=== PATIENT | male | born 2005 | race African-American/Black ===

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

== ENCOUNTER 2023-03-17 10:33 | Emergency (ER) | payer OTHER, SELFPAY ==
[2023-03-17 10:41] VITALS: BP 132/70; PULSE 84; RESP 16; TEMP 36.6; O2SAT 100
--- NOTE | 2023-03-17 11:08 | ED.GENADULT ---
[facility] - General Adult General Chief complaint: Dental/Oral Stated complaint: dental pain Time Seen by Provider: 03/17/23 10:45 Source: patient Mode of arrival: ambulatory Limitations: no limitations History of Present Illness [facility] narrative: This is a 17-year-old male who presents to the ED with chief complaint of left upper dental pain/swelling beginning about a week ago. Reports he initially had pain in the left upper side but that has since subsided. He states he started to develop swelling to the left side of his face. States the swelling has gradually increased since onset. Pain is minimal at this point. Reports he has a history of a cracked tooth on that left upper side but has not been able to see his dentist yet. He has not been seen for this problem yet. Denies fevers, chills, nausea, vomiting. Related Data Allergies Allergy/AdvReac Type Severity Reaction Status Date / Time No Known Allergies Allergy Verified 11/24/20 20:07 Review of Systems Review of Systems: All systems as dictated in [facility] Past Medical History Medical History Asthma Social History Social History Living arrangements: with family Exam Narrative: GENERAL: Well-appearing, well-nourished, and in no acute distress. HEAD: Normocephalic, atraumatic. EYES: PERRLA and EOMI. ENT: There is gingival swelling without identifiable abscess to the left upper premolar/molars. Mild tenderness in this area. Floor the mouth is intact. No trismus or drooling. Floor the mouth is intact. Left-sided facial swelling present. Mild tenderness. No overlying skin changes. Nares clear, no rhinorrhea or epistaxis. Mucous membranes moist. Oropharynx without tonsillar hypertrophy exudate or other lesions. NECK: Supple. No adenopathy or masses. CHEST: No respiratory distress. Clear to auscultation. No wheezes rales or rhonchi HEART: Regular rate and rhythm. No murmur heard. Normal peripheral pulses. ABDOMEN: Soft, nontender, nondistended, normal active bowel sounds. MSK: Normal range of motion. No edema. SKIN: Warm, dry, no rash. NEURO: Alert and oriented x3. No focal deficits. PSYCH: Normal mood and affect. Course Vital Signs Vital signs: Vital Signs Temperature 97.9 F 03/17/23 10:41 Pulse Rate 84 03/17/23 10:41 Respiratory Rate 16 03/17/23 10:41 Blood Pressure 132/70 03/17/23 10:41 Pulse Oximetry 100 03/17/23 10:41 Temperature 97.9 F 03/17/23 10:41 Pulse Rate 84 03/17/23 10:41 Respiratory Rate 16 03/17/23 10:41 Blood Pressure 132/70 03/17/23 10:41 Pulse Oximetry 100 03/17/23 10:41 Medical Decision Making MDM Narrative Medical decision making narrative: This is a 17-year-old male with PMH of left-sided dental pain and swelling for the past several days. Vitals were normal. Exam shows some generalized erythema and swelling to the left upper premolar area. He is afebrile. No evidence of any deep space infection. Swelling to the face is very mild. He will be discharged with prescription for antibiotics for possible infection. He has a dentist that he can follow-up with. Pt will be discharged in stable condition. Return precautions given and supportive measures discussed. Pt is understanding and agreeable with plan for discharge and follow-up with dentist. Vital Signs Vital Signs: Vital Signs Temperature 97.9 F 03/17/23 10:41 Pulse Rate 84 03/17/23 10:41 Respiratory Rate 16 03/17/23 10:41 Blood Pressure 132/70 03/17/23 10:41 Pulse Oximetry 100 03/17/23 10:41 Temperature 97.9 F 03/17/23 10:41 Pulse Rate 84 03/17/23 10:41 Respiratory Rate 16 03/17/23 10:41 Blood Pressure 132/70 03/17/23 10:41 Pulse Oximetry 100 03/17/23 10:41 Discharge Plan Discharge Clinical Impression: Toothache, Dental caries Patient Dispositio
== END 2023-03-17 11:25 | disposition home or self-care (01) ==
PROVIDERS: Emergency Provider Physician Assistant; PCP Internal Medicine
DX: K08.89 Other specified disorders of teeth and supporting structures (principal); K02.9 Dental caries, unspecified
CPT/HCPCS: 99283